=== PATIENT | male | born 1945 | race Caucasian/White ===

== ENCOUNTER 2018-04-27 09:51 | Inpatient (IN) | payer MEDICARE, OTHER ==
[~2018-04-27] VITALS: Ht 157.5 cm; Wt 65.9 kg
[2018-04-27] MEDS ORDERED: ceFAZolin 1GM/D5W- ADD-VANTAGE 50 ML IV STA (11:14)
[2018-04-27] MEDS ORDERED: normal saline 1000ML IV soln IVB ONE (11:15)
[2018-04-27] MEDS ORDERED: ondansetron/PF 4mg/2ml inj IV ONE ×2 (11:15)
[2018-04-27] MEDS ORDERED: morphine 4 MG/ML inj SYRINge IV ONE (11:15)
[2018-04-27 11:34] LABS: BASOPHILS % (AUTO) 0.5 % (0-1); HEMATOCRIT 40.8 % (42.0-52.0); HEMOGLOBIN 14.1 g/dl (14.0-17.9); LYMPHOCYTES # (AUTO) 1.6 X10'3 (1.1-4.8); LYMPHOCYTES % (AUTO) 31.9 % (21-51); MEAN CORPUSCULAR HEMOGLOBIN 31.2 PG (27.0-31.0); MEAN CORPUSCULAR HGB CONC 34.6 % (33.0-36.5); MEAN CORPUSCULAR VOLUME 90.2 FL (78-98); MEAN PLATELET VOLUME 7.8 FL (7.4-10.4); MONOCYTES # (AUTO) 0.3 X10'3 (0-0.9); MONOCYTES % (AUTO) 6.7 % (2-12); NEUTROPHILS # (AUTO) 2.9 X10'3 (1.8-7.7); NEUTROPHILS % (AUTO) 59.9 % (42-75); PLATELET COUNT 214 X10'3 (140-440); RED BLOOD COUNT 4.53 X10'6 (4.70-6.10); RED CELL DISTRIBUTION WIDTH 13.9 % (11.5-14.5); WHITE BLOOD COUNT 4.9 X10'3 (4.5-11.0)
[2018-04-27 11:43] LABS: INR 1.1 INR; PROTHROMBIN TIME 11.2 SECONDS (9.0-12.0)
[2018-04-27 11:50] LABS: ALANINE AMINOTRANSFERASE 26 U/L (12-78); ALBUMIN 3.7 G/DL (3.4-5.0); ALBUMIN/GLOBULIN RATIO 1.1 (1.1-1.5); ALKALINE PHOSPHATASE 56 IU/L (46-116); ANION GAP 7 (8-16); ASPARTATE AMINO TRANSFERASE 17 U/L (10-37); BILIRUBIN,TOTAL 0.3 MG/DL (0.1-1.0); BLOOD UREA NITROGEN 18 MG/DL (7-18); BUN/CREATININE RATIO 19.8 (5.4-32.0); CHLORIDE 105 MMOL/L (99-107); CREATININE 0.91 MG/DL (0.60-1.10); GLUCOSE 142 MG/DL (70-104); SODIUM 138 MMOL/L (135-145); TOTAL CARBON DIOXIDE 26.2 MMOL/L (24-32); TOTAL PROTEIN 7.1 G/DL (6.4-8.2); eGFR 81 ML/MIN
[2018-04-27] MEDS ORDERED: BUPIVAcaine/PF 7.5 mg/ml (0.75%) 30ml vial IJ ONE (12:00)
[2018-04-27] MEDS ORDERED: normal saline 1000ml 1,000 ML IV SCH (12:54)
[2018-04-27] MEDS ORDERED: HYDROcodone/acetaminophen 5mg/325mg tablet PO PRN (12:55)
[2018-04-27] MEDS ORDERED: magnesium Cl slow-release 64mg tablet PO PRN (12:55)
[2018-04-27] MEDS ORDERED: magnesium 1gm/100ml D5W IVPB 100 ML IV PRN (12:55)
[2018-04-27] MEDS ORDERED: magnesium 4gm in 100ml NS 100 ML IV PRN (12:55)
[2018-04-27] MEDS ORDERED: ondansetron/PF 4mg/2ml inj IV PRN (12:55)
[2018-04-27] MEDS ORDERED: potassium Cl 40MEQ/NS 500ml 500 ML IV PRN ×2 (12:55)
[2018-04-27] MEDS ORDERED: potassium Cl 20 mEq SR tablet PO PRN ×2 (12:55)
[2018-04-27] MEDS ORDERED: AMLO1CAP6 PO (14:03)
[2018-04-27] MEDS ORDERED: METF10004 PO (14:03)
[2018-04-27] MEDS ORDERED: GLIM4TAB PO (14:03)
[2018-04-27] MEDS ORDERED: ASPI-1265 PO (14:24)
[2018-04-27] MEDS ORDERED: insulin Lispro (HumaLOG) vial - multi-dose SQ SCH (14:30)
[2018-04-27] MEDS ORDERED: dextrose 50%-water 50ml dispensing syringe IV PRN ×2 (14:30)
[2018-04-27] MEDS ORDERED: dextrose ORAL solution 15 GM/59 ML bottle PO PRN ×2 (14:30)
[2018-04-27] MEDS ORDERED: glucagon, human recombinant 1mg kit SUBCUT PRN (14:30)
[2018-04-27] MEDS ORDERED: MESSAGE TO PHARMACY PO ONE (14:30)
[2018-04-27 15:15] VITALS: BP 125/69
[2018-04-27 18:00] VITALS: BP 138/70
[2018-04-27] MEDS ORDERED: famotidine 20mg tablet PO SCH (21:00)
[2018-04-27] MEDS ORDERED: insulin glargine (Lantus) pen - multi-dose SQ SCH (21:00)
[2018-04-27 22:00] VITALS: BP 131/71
[2018-04-28] VITALS (7 sets, daily range): BP systolic 118–132; BP diastolic 68–76
[2018-04-28 05:50] LABS: BASOPHILS % (AUTO) 0.3 % (0-1); EOSINOPHILS # (AUTO) 0.2 X10'3 (0-0.9); EOSINOPHILS % (AUTO) 2.6 % (0-6); HEMATOCRIT 41.1 % (42.0-52.0); HEMOGLOBIN 14.2 g/dl (14.0-17.9); LYMPHOCYTES # (AUTO) 1.9 X10'3 (1.1-4.8); LYMPHOCYTES % (AUTO) 27.7 % (21-51); MEAN CORPUSCULAR HEMOGLOBIN 31.1 PG (27.0-31.0); MEAN CORPUSCULAR HGB CONC 34.6 % (33.0-36.5); MEAN PLATELET VOLUME 7.6 FL (7.4-10.4); MONOCYTES # (AUTO) 0.4 X10'3 (0-0.9); MONOCYTES % (AUTO) 6.5 % (2-12); NEUTROPHILS # (AUTO) 4.3 X10'3 (1.8-7.7); NEUTROPHILS % (AUTO) 62.9 % (42-75); PLATELET COUNT 221 X10'3 (140-440); RED BLOOD COUNT 4.56 X10'6 (4.70-6.10); RED CELL DISTRIBUTION WIDTH 13.3 % (11.5-14.5); WHITE BLOOD COUNT 6.9 X10'3 (4.5-11.0)
[2018-04-28 06:05] LABS: ALBUMIN 3.4 G/DL (3.4-5.0); ANION GAP 4 (8-16); BLOOD UREA NITROGEN 12 MG/DL (7-18); BUN/CREATININE RATIO 14.5 (5.4-32.0); CALCIUM 8.2 MG/DL (8.5-10.1); CHLORIDE 105 MMOL/L (99-107); CREATININE 0.83 MG/DL (0.60-1.10); GLUCOSE 108 MG/DL (70-104); MAGNESIUM 1.8 MG/DL (1.5-2.4); POTASSIUM 3.8 MMOL/L (3.5-5.1); SODIUM 137 MMOL/L (135-145); TOTAL CARBON DIOXIDE 27.6 MMOL/L (24-32); eGFR > 90 ML/MIN
[2018-04-28] MEDS ORDERED: K and/or MAG REPLACEMENT MC SCH (08:00)
[2018-04-28] MEDS ORDERED: ceFAZolin 1GM/D5W- ADD-VANTAGE 50 ML IV SCH (08:00)
[2018-04-28] MEDS ORDERED: amLODIPine 5mg tablet PO SCH (08:00)
[2018-04-28] MEDS ORDERED: BENAZEPRIL PO SCH (08:00)
[2018-04-28] MEDS ORDERED: AMLODIPINE BESYLATE PO SCH (08:00)
[2018-04-28] MEDS ORDERED: lisinopril 20mg tablet PO SCH (08:00)
[2018-04-28] MEDS ORDERED: MIDAZolam 1mg/ml 10ml vial ONE (09:44)
[2018-04-28] MEDS ORDERED: fentaNYL/PF 50MCG/1 ML 2ML syringe ONE (09:44)
[2018-04-28] MEDS ORDERED: ROPIVAcaine 0.5% (5mg/ml) 30ml vial ONE (09:46)
[2018-04-28] MEDS ORDERED: ringers solution, lacted 1,000 ML IV SCH (09:49)
[2018-04-28] MEDS ORDERED: labetalol 20mg/4ml (5mg/ml) syringe IV PRN (09:50)
[2018-04-28] MEDS ORDERED: fentaNYL/PF 50MCG/1 ML 2ML syringe IV PRN ×2 (09:50)
[2018-04-28] MEDS ORDERED: enalaprilat dihydrate 2.5mg/2ml vial IV PRN (09:50)
[2018-04-28] MEDS ORDERED: morphine 4 MG/ML inj SYRINge IV PRN ×2 (09:50)
[2018-04-28] MEDS ORDERED: ondansetron/PF 4mg/2ml inj IV PRN (09:50)
[2018-04-28] MEDS ORDERED: propofol inj 20 ML IV ONE (10:23)
[2018-04-28] MEDS ORDERED: flumazenil 0.1 mg/ml inj. IV ONE (10:32)
[2018-04-28] MEDS ORDERED: HYDR-565 PO (11:53)
== END 2018-04-28 13:20 | disposition home or self-care (01) | DRG 580 ==
LOC: ER 09:51 → ED HOLD 13:04 → ORTHO 4S 15:00
PROVIDERS: ADMIT Internal Medicine; ATTEND Internal Medicine
PROC: 2W3JX1Z Immobilization of Right Finger using Splint (ICD-10-PCS; 2018-04-27)
PROC: 3E0T3BZ Introduction of Anesthetic Agent into Peripheral Nerves and Plexi, Percutaneous Approach (ICD-10-PCS; 2018-04-27)
PROC: 0X6Q0Z3 Detachment at Right Middle Finger, Low, Open Approach (ICD-10-PCS; principal; 2018-04-28 09:52)
DX: S61.212A Laceration without foreign body of right middle finger without damage to nail, initial encounter (principal); S62.632B Displaced fracture of distal phalanx of right middle finger, initial encounter for open fracture; E11.9 Type 2 diabetes mellitus without complications; I10 Essential (primary) hypertension; W31.89XA Contact with other specified machinery, initial encounter; Z79.899 Other long term (current) drug therapy; Z79.82 Long term (current) use of aspirin; Y93.89 Activity, other specified; Y92.89 Other specified places as the place of occurrence of the external cause; Y99.8 Other external cause status
CPT/HCPCS: 36415; 64450; 71045; 73140; 80048; 80053; 82948; 83036; 83735; 85025; 85610; 87070; 96365; 96375; 99285; A6222; A6446; A6449; A7000; J0690; J1815; J2250; J2270; J2405; J2704; J2795; J3010; J3370; J3490; J7030; J7120

== ENCOUNTER 2018-09-16 09:48 | Emergency (ER) | payer MEDICARE, OTHER ==
[~2018-09-16] VITALS: Ht 157.5 cm; Wt 63.2 kg
[~2018-09-16 09:48] MED LIST: AMLO1CAP6 PO; ASPI-1265 PO; GLIM4TAB PO; METF-438 PO
[2018-09-16 10:04] VITALS: BP_SYST 119
[2018-09-16] MEDS ORDERED: ondansetron/PF 4mg/2ml inj IV ONE (11:00)
[2018-09-16] MEDS ORDERED: fentaNYL/PF 50MCG/1 ML 2ML syringe IV ONE (11:00)
[2018-09-16 11:06] LABS: CLARITY,URINE TURBID (Clear); COLOR,URINE RED (Yellow); UA COLLECTION TYPE VOIDED
[2018-09-16 11:17] LABS: BACTERIA,URINE NONE SEEN /HPF (Neg); MUCUS STRANDS NONE SEEN /LPF (Neg); RBC,URINE TNTC /HPF (0-2); SQUAMOUS EPITHELIAL CELL,UR NONE SEEN /LPF (FEW)
[2018-09-16 11:22] LABS: BASOPHILS % (AUTO) 0.2 % (0-1); EOSINOPHILS % (AUTO) 0.4 % (0-6); HEMATOCRIT 38.3 % (42.0-52.0); HEMOGLOBIN 12.9 g/dl (14.0-17.9); LYMPHOCYTES # (AUTO) 1.5 X10'3 (1.1-4.8); MEAN CORPUSCULAR HEMOGLOBIN 30.9 PG (27.0-31.0); MEAN CORPUSCULAR HGB CONC 33.7 % (33.0-36.5); MEAN CORPUSCULAR VOLUME 91.7 FL (78-98); MEAN PLATELET VOLUME 8.6 FL (7.4-10.4); MONOCYTES # (AUTO) 0.3 X10'3 (0-0.9); MONOCYTES % (AUTO) 3.2 % (2-12); NEUTROPHILS # (AUTO) 7.3 X10'3 (1.8-7.7); NEUTROPHILS % (AUTO) 79.2 % (42-75); PLATELET COUNT 266 X10'3 (140-440); RED BLOOD COUNT 4.18 X10'6 (4.70-6.10); RED CELL DISTRIBUTION WIDTH 12.5 % (11.5-14.5); WHITE BLOOD COUNT 9.1 X10'3 (4.5-11.0)
[2018-09-16 11:35] LABS: ALANINE AMINOTRANSFERASE 25 U/L (12-78); ALBUMIN 3.7 G/DL (3.4-5.0); ALBUMIN/GLOBULIN RATIO 1.3 (1.1-1.5); ALKALINE PHOSPHATASE 59 IU/L (46-116); ANION GAP 18 (8-16); ASPARTATE AMINO TRANSFERASE 14 U/L (10-37); BILIRUBIN,TOTAL 0.2 MG/DL (0.1-1.0); BLOOD UREA NITROGEN 21 MG/DL (7-18); BUN/CREATININE RATIO 14.7 (5.4-32.0); CALCIUM 8.6 MG/DL (8.5-10.1); CHLORIDE 99 MMOL/L (99-107); CREATININE 1.43 MG/DL (0.60-1.10); GLUCOSE 405 MG/DL (70-104); POTASSIUM 4.1 MMOL/L (3.5-5.1); SODIUM 134 MMOL/L (135-145); TOTAL CARBON DIOXIDE 17.2 MMOL/L (24-32); TOTAL PROTEIN 6.6 G/DL (6.4-8.2); eGFR 48 ML/MIN
[2018-09-16 11:36] LABS: INR 1.2 INR; PARTIAL THROMBOPLASTIN TIME 23 SECONDS (22-32); PROTHROMBIN TIME 11.6 SECONDS (9.0-12.0)
[2018-09-16] MEDS ORDERED: opium/belladonna alkaloids No. 15A 30mg rectal suppository RC STA (12:49)
[2018-09-16] MEDS ORDERED: OPIU1SUP RC (12:53)
[2018-09-16 14:44] VITALS: BP_DIAS 78
== END 2018-09-16 14:48 | disposition home or self-care (01) ==
LOC: ER 09:48
DX: R33.9 Retention of urine, unspecified (principal); R31.0 Gross hematuria; E11.9 Type 2 diabetes mellitus without complications; Z79.82 Long term (current) use of aspirin; Z79.899 Other long term (current) drug therapy
CPT/HCPCS: 36415; 51702; 80053; 81001; 85025; 85610; 85730; 87088; 96374; 96375; 99284; J2405; J3010